=== PATIENT | male | born 1945 | race Caucasian/White ===

== ENCOUNTER 2020-03-11 02:31 | Inpatient (IN) | payer MEDICARE, MEDICAID ==
[~2020-03-11] VITALS: Ht 175.3 cm; Wt 63.5 kg
[2020-03-11 03:42] LABS: BASOPHILS % (AUTO) 0.6 % (0.0-2.0); EOSINOPHILS % (AUTO) 5.1 % (1.0-6.0); HEMATOCRIT 34.4 % (41-53); HEMOGLOBIN 11.7 g/dL (13.5-17.5); LYMPHOCYTES # (AUTO) 0.9 K/uL (1.0-4.8); MEAN CORPUSCULAR HEMOGLOBIN 32.3 pg (26.0-34.0); MEAN CORPUSCULAR VOLUME 95 fL (80-100); MONOCYTES # (AUTO) 0.7 K/uL (0.1-1.0); MONOCYTES % (AUTO) 13.9 % (2.0-9.0); NEUTROPHILS # (AUTO) 3.3 K/uL (1.8-7.7); NEUTROPHILS % (AUTO) 63.4 % (40.0-70.0); PLATELET COUNT (AUTO) 250 K/uL (150-450); RED BLOOD CELL COUNT(AUTO) 3.62 MIL/uL (4.50-5.90); RED CELL DISTRIBUTION WIDTH 14.4 % (11.5-14.5)
[2020-03-11 04:03] LABS: ANION GAP 7 mmol/L (8-16); CALCIUM, TOTAL 8.4 mg/dL (8.8-10.5); CARBON DIOXIDE 29 mmol/L (22-29); CHLORIDE 103 mmol/L (98-107); CREATININE 0.69 mg/dL (0.60-1.30); GLUCOSE,RANDOM 98 mg/dL (70-110); POTASSIUM 4.2 mmol/L (3.5-5.1); SODIUM SERUM 139 mmol/L (136-145); UREA NITROGEN, BLOOD 16 mg/dL (7-18)
[2020-03-11 04:06] LABS: GLOMERULAR FILTR. RATE CALC > 60 mL/min (>60)
[2020-03-11 04:09] LABS: ALANINE AMINOTRANSFERASE 23 U/L (12-78); ALBUMIN 3.2 g/dL (3.4-5.0); ALKALINE PHOSPHATASE 80 U/L (46-116); ASPARTATE AMINOTRANSFERASE 22 U/L (15-37); BILIRUBIN,TOTAL 0.3 mg/dL (0.1-1.0); TOTAL PROTEIN, SERUM 6.6 g/dL (6.4-8.2)
[2020-03-11] MEDS ORDERED: ZOLPIDEM TARTRATE 10 MG TABLET PO PRN (04:30)
[2020-03-11] MEDS ORDERED: HALOPERIDOL 5 MG TABLET PO PRN (04:30)
[2020-03-11] MEDS ORDERED: LORazepam 2 MG TABLET PO PRN (04:30)
[2020-03-11 05:32] LABS: AMPHET/METH SCREEN,URINE NEGATIVE (NEGATIVE); BARBITURATE SCREEN, URINE NEGATIVE (NEGATIVE); BENZODIAZEPINES SCREEN,URINE NEGATIVE (NEGATIVE); CANNABINOID SCREEN,URINE NEGATIVE (NEGATIVE); COCAINE SCREEN,URINE NEGATIVE (NEGATIVE); METHADONE SCREEN, URINE NEGATIVE (NEGATIVE); OPIATE SCREEN,URINE NEGATIVE (NEGATIVE)
[2020-03-11 05:33] LABS: PHENCYCLIDINE SCREEN,URINE NEGATIVE (NEGATIVE)
[2020-03-11 05:54] VITALS: BP 148/75
[2020-03-11 07:12] LABS: APPEARANCE,URINE CLEAR (CLEAR); BILIRUBIN,URINE NEGATIVE (NEGATIVE); GLUCOSE, URINE (UA) NEGATIVE (NEGATIVE); KETONES,URINE NEGATIVE (NEGATIVE); LEUKOCYTE ESTERASE ,URINE NEGATIVE (NEGATIVE); NITRATE,URINE NEGATIVE (NEGATIVE); OCCULT BLOOD,URINE TRACE (NEGATIVE); PROTEIN,URINE NEGATIVE (NEGATIVE); UROBILINOGEN,URINE 0.2 mg/dL (<=1.0)
[2020-03-11 07:28] LABS: BACTERIA,URINE None Seen /HPF (None Seen); RBC,URINE None Seen /HPF (0-2); SQUAMOUS EPITHELIAL CELL,UR None Seen /LPF (None Seen); WBC,URINE None Seen /HPF (0-5)
[2020-03-11] MEDS ORDERED: MAG HYDROX/AL HYDROX/SIMETH ES 30 ML SUSPENSION UDCUP PO PRN (07:45)
[2020-03-11] MEDS ORDERED: BENZOCAINE/MENTHOL LOZENGE MM PRN (07:45)
[2020-03-11] MEDS ORDERED: ONDANSETRON HCL 4 MG TABLET PO PRN (07:45)
[2020-03-11] MEDS ORDERED: CloNIDine HCL 0.1 MG TABLET PO PRN (07:45)
[2020-03-11] MEDS ORDERED: DOCUSATE SODIUM 100 MG CAPSULE PO PRN (07:45)
[2020-03-11] MEDS ORDERED: MAGNESIUM HYDROXIDE SUSPENSION 30 ML UDCUP PO PRN (07:45)
[2020-03-11] MEDS ORDERED: PETROLATUM,WHITE 28 GM JELLY TP PRN (07:45)
[2020-03-11] MEDS ORDERED: ACETAMINOPHEN 325 MG TABLET PO PRN (07:45)
[2020-03-11] MEDS ORDERED: BACITRACIN 28.4 GM OINTMENT TP PRN (07:45)
[2020-03-11] MEDS ORDERED: OMEPRAZOLE 20 MG CAPSULE PO PRN (07:45)
[2020-03-11] MEDS ORDERED: IBUPROFEN 600 MG TABLET PO PRN (07:45)
[2020-03-11] MEDS ORDERED: LOPERAMIDE HCL 2 MG CAPSULE PO PRN (07:45)
[2020-03-11] MEDS ORDERED: ALBUTEROL SULFATE HFA 90 MCG/PUFF 8 GM INHALER IH PRN (07:45)
[2020-03-11 08:00] VITALS: BP 131/67
[2020-03-11] MEDS: LISINOPRIL 20 MG TABLET PO SCH (09:00)
[2020-03-11 16:00] VITALS: BP 118/69
[2020-03-12 07:13] LABS: CHOL/HDL RATIO 2.1 (4.2-7.3)
[2020-03-12 08:00] VITALS: BP 129/55
[2020-03-12] MEDS: LISINOPRIL 20 MG TABLET PO SCH (09:00)
[2020-03-12 16:00] VITALS: BP 103/61
[2020-03-13 08:55] VITALS: BP 126/68
[2020-03-13] MEDS: LISINOPRIL 20 MG TABLET PO SCH (08:56)
[2020-03-13] MEDS: CITALOPRAM HYDROBROMIDE 20 MG TABLET PO SCH (16:18)
[2020-03-13 16:45] VITALS: BP 134/80
[2020-03-14 08:00] VITALS: BP 132/68
[2020-03-14] MEDS: CITALOPRAM HYDROBROMIDE 20 MG TABLET PO SCH (08:55)
[2020-03-14] MEDS: LISINOPRIL 20 MG TABLET PO SCH (08:56)
[2020-03-14 16:00] VITALS: BP 146/72
[2020-03-15 08:00] VITALS: BP 120/58
[2020-03-15] MEDS: CITALOPRAM HYDROBROMIDE 20 MG TABLET PO SCH (08:04)
[2020-03-15 08:22] VITALS: BP 120/58
[2020-03-15] MEDS: LISINOPRIL 20 MG TABLET PO SCH (09:00)
[2020-03-15 16:36] VITALS: BP 120/80
[2020-03-16] MEDS: CITALOPRAM HYDROBROMIDE 20 MG TABLET PO SCH (08:19)
[2020-03-16 08:56] VITALS: BP 122/63
[2020-03-16] MEDS: LISINOPRIL 20 MG TABLET PO SCH (09:00)
[2020-03-16 16:00] VITALS: BP 116/63
[2020-03-17] MEDS: LISINOPRIL 20 MG TABLET PO SCH (09:00)
[2020-03-17 09:19] VITALS: BP 133/81
[2020-03-17] MEDS: CITALOPRAM HYDROBROMIDE 20 MG TABLET PO SCH (09:46)
[2020-03-17 17:48] VITALS: BP 114/72
[2020-03-18 08:00] VITALS: BP 127/73
[2020-03-18] MEDS: CITALOPRAM HYDROBROMIDE 20 MG TABLET PO SCH (08:42)
[2020-03-18] MEDS: LISINOPRIL 20 MG TABLET PO SCH (08:45)
[2020-03-18 16:50] VITALS: BP 95/65
[2020-03-19 01:22] VITALS: BP 115/69
[2020-03-19 08:00] VITALS: BP 139/76
[2020-03-19] MEDS: CITALOPRAM HYDROBROMIDE 20 MG TABLET PO SCH (08:09)
[2020-03-19] MEDS: LISINOPRIL 20 MG TABLET PO SCH (08:09)
[2020-03-19] MEDS ORDERED: CITA-144 PO (12:17)
[2020-03-19] MEDS ORDERED: LISI-662 PO (12:18)
== END 2020-03-19 14:19 | disposition home or self-care (01) | DRG 881 ==
LOC: EMS 02:31 → 3EX 04:00
PROVIDERS: ADMIT Psychiatry & Neurology Psychiatry; ATTEND Psychiatry & Neurology Psychiatry
DX: F32.9 Major depressive disorder, single episode, unspecified (principal); R45.851 Suicidal ideations; G47.00 Insomnia, unspecified; F41.9 Anxiety disorder, unspecified; F19.10 Other psychoactive substance abuse, uncomplicated; G80.9 Cerebral palsy, unspecified; M19.90 Unspecified osteoarthritis, unspecified site; K59.00 Constipation, unspecified; F17.200 Nicotine dependence, unspecified, uncomplicated
CPT/HCPCS: G0378; G0480